=== PATIENT | female | born 1990 | race Caucasian/White ===

== ENCOUNTER → 2018-08-22 | Day surgery (SDC) | payer OTHER | END | disposition home or self-care (01) | LOC: CIR.AMB 13:32 | DX: O02.1 Missed abortion (principal); Z3A.01 Less than 8 weeks gestation of pregnancy ==

== ENCOUNTER → 2021-03-15 | Outpatient (CLI) | payer OTHER | END | disposition home or self-care (01) | LOC: OBS/DEL 20:16 | PROVIDERS: ATTEND Obstetrics & Gynecology Maternal & Fetal Medicine | DX: O26.893 Other specified pregnancy related conditions, third trimester (principal); R10.32 Left lower quadrant pain; Z3A.32 32 weeks gestation of pregnancy ==

== ENCOUNTER 2021-04-13 15:15 | Inpatient (IN) | payer OTHER ==
[~2021-04-13] VITALS: Ht 149.9 cm; Wt 78.5 kg
[2021-05-07] MEDS ORDERED: PRENATAL TABLE1 EAC1 PO (11:59)
[2021-05-08] MEDS ORDERED: FAMOTIDINE20 MG (11:23)
== END 2021-05-09 13:04 | disposition home or self-care (01) | DRG 806 ==
LOC: OB/GYN 05-07 11:28 → LDR 05-07 11:28 → OB/GYN 05-07 16:55
PROVIDERS: ADMIT Obstetrics & Gynecology; ATTEND Obstetrics & Gynecology
PROC: 10D17Z9 Manual Extraction of Products of Conception, Retained, Via Natural or Artificial Opening (ICD-10-PCS; 2021-05-07)
PROC: 0W8NXZZ Division of Female Perineum, External Approach (ICD-10-PCS; 2021-05-07)
PROC: 10907ZC Drainage of Amniotic Fluid, Therapeutic from Products of Conception, Via Natural or Artificial Opening (ICD-10-PCS; 2021-05-07)
PROC: 3E033VJ Introduction of Other Hormone into Peripheral Vein, Percutaneous Approach (ICD-10-PCS; 2021-05-07)
PROC: 4A1HXFZ Monitoring of Products of Conception, Cardiac Rhythm, External Approach (ICD-10-PCS; 2021-05-07)
PROC: 10E0XZZ Delivery of Products of Conception, External Approach (ICD-10-PCS; principal; 2021-05-07 18:45)
DX: O48.0 Post-term pregnancy (principal); O72.2 Delayed and secondary postpartum hemorrhage; Z37.0 Single live birth; Z3A.40 40 weeks gestation of pregnancy

== ENCOUNTER 2021-04-18 10:37 | Outpatient (CLI) | payer OTHER | END 2021-04-18 11:40 | disposition home or self-care (01) | LOC: NST 10:37 | PROVIDERS: ATTEND Obstetrics & Gynecology | DX: Z34.83 Encounter for supervision of other normal pregnancy, third trimester (principal) ==

== ENCOUNTER 2021-05-02 10:32 | Outpatient (CLI) | payer OTHER | END 2021-05-02 11:23 | disposition home or self-care (01) | LOC: NST 10:32 | PROVIDERS: ATTEND Obstetrics & Gynecology Maternal & Fetal Medicine | DX: Z34.83 Encounter for supervision of other normal pregnancy, third trimester (principal) ==

== ENCOUNTER 2021-05-05 11:19 | Outpatient (CLI) | payer OTHER | END 2021-05-05 12:21 | disposition home or self-care (01) | LOC: NST 11:19 | PROVIDERS: ATTEND Obstetrics & Gynecology | DX: Z34.83 Encounter for supervision of other normal pregnancy, third trimester (principal) ==

== ENCOUNTER 2023-03-13 12:43 | Emergency (ER) | payer OTHER ==
[~2023-03-13] VITALS: Ht 149.9 cm; Wt 75.3 kg
[~2023-03-13 12:43] MED LIST: FAMOTIDINE20 MG; PRENATAL TABLE1 EAC1 PO
== END 2023-03-13 15:48 | disposition home or self-care (01) ==
LOC: ER 12:43
DX: O26.899 Other specified pregnancy related conditions, unspecified trimester (principal); S99.822A Other specified injuries of left foot, initial encounter; W46.1XXA Contact with contaminated hypodermic needle, initial encounter; Y93.89 Activity, other specified; Y92.238 Other place in hospital as the place of occurrence of the external cause; Y99.8 Other external cause status

== ENCOUNTER 2023-04-17 16:44 | Outpatient (CLI) | payer OTHER | END 2023-04-17 16:46 | disposition home or self-care (01) | LOC: NST 16:44 | PROVIDERS: ATTEND Obstetrics & Gynecology | DX: Z34.83 Encounter for supervision of other normal pregnancy, third trimester (principal) ==

== ENCOUNTER → 2023-04-26 | Outpatient (CLI) | payer OTHER | END | disposition home or self-care (01) | LOC: NST 12:01 | PROVIDERS: ATTEND Obstetrics & Gynecology | DX: Z34.83 Encounter for supervision of other normal pregnancy, third trimester (principal) ==

== ENCOUNTER 2023-04-29 12:37 | Outpatient (CLI) | payer OTHER | END 2023-04-29 14:07 | disposition home or self-care (01) | LOC: NST 12:37 | PROVIDERS: ATTEND Obstetrics & Gynecology | DX: Z34.83 Encounter for supervision of other normal pregnancy, third trimester (principal) ==

== ENCOUNTER 2023-05-02 12:17 | Outpatient (CLI) | payer OTHER | END 2023-05-02 13:01 | disposition home or self-care (01) | LOC: NST 12:17 | PROVIDERS: ATTEND Obstetrics & Gynecology Maternal & Fetal Medicine | DX: Z34.83 Encounter for supervision of other normal pregnancy, third trimester (principal) ==

== ENCOUNTER 2023-05-07 17:00 | Inpatient (IN) | payer OTHER ==
[~2023-05-07] VITALS: Ht 149.9 cm; Wt 80.3 kg
[2023-05-07] MEDS ORDERED: URSO250 MG PO (18:02)
== END 2023-05-10 13:40 | disposition home or self-care (01) | DRG 807 ==
LOC: OB/GYN 17:00 → LDR 17:00 → OB/GYN 05-08 15:10
PROVIDERS: ADMIT Obstetrics & Gynecology Maternal & Fetal Medicine; ATTEND Obstetrics & Gynecology Maternal & Fetal Medicine
PROC: 4A1HXCZ Monitoring of Products of Conception, Cardiac Rate, External Approach (ICD-10-PCS; 2023-05-07)
PROC: 10E0XZZ Delivery of Products of Conception, External Approach (ICD-10-PCS; principal; 2023-05-08)
PROC: 0HQ9XZZ Repair Perineum Skin, External Approach (ICD-10-PCS; 2023-05-08)
DX: O70.0 First degree perineal laceration during delivery (principal); Z37.0 Single live birth; Z3A.37 37 weeks gestation of pregnancy; Z20.822 Contact with and (suspected) exposure to COVID-19